=== PATIENT | male | born 1975 | race Caucasian/White ===

== ENCOUNTER → 2016-12-31 | Outpatient (CLI) | payer BC | LOC: BMCIMAGING 11:52 | PROVIDERS: ATTEND Registered Nurse General Practice | DX: S22.080A Wedge compression fracture of T11-T12 vertebra, initial encounter for closed fracture (principal) ==

== ENCOUNTER → 2017-01-12 | Outpatient (CLI) | payer BC | LOC: BRMIMAGING 08:41 | PROVIDERS: ATTEND Registered Nurse General Practice | DX: Z13.820 Encounter for screening for osteoporosis (principal) ==